=== PATIENT | female | born 1955 | race Caucasian/White ===

== ENCOUNTER 2024-06-22 09:05 | Observation (INO) | payer OTHER ==
[2024-06-21 12:11] LABS: BASOPHILS # (AUTO) 0.03 K/uL (0.00-0.20); BASOPHILS % (AUTO) 0.6 % (0.0-5.0); EOSINOPHILS # (AUTO) 0.03 K/uL (0.00-0.70); EOSINOPHILS % (AUTO) 0.6 % (0.0-8.0); HEMATOCRIT 41.6 % (36-48); IMMATURE GRANULOCYTE ABSOLUTE 0.02 K/uL (0-1); LYMPHOCYTES # (AUTO) 1.7 K/uL (1.0-4.8); LYMPHOCYTES % (AUTO) 35.4 % (21.0-51.0); MEAN CORPUSCULAR HEMOGLOBIN 28.7 pg (27.0-33.0); MEAN CORPUSCULAR HGB CONC 31.7 g/dL (32.0-36.0); MEAN CORPUSCULAR VOLUME 90.4 fL (79-99); MONOCYTES # (AUTO) 0.3 K/uL (0.1-1.0); MONOCYTES % (AUTO) 5.3 % (3.0-13.0); NEUTROPHILS # (AUTO) 2.8 K/uL (1.8-7.7); NEUTROPHILS % (AUTO) 57.7 % (40.0-77.0); PLATELET COUNT (AUTO) 287 K/uL (130-400); RED CELL DISTRIBUTION WIDTH 13.2 % (11.0-15.5); WHITE BLOOD COUNT (AUTO) 4.9 K/uL (4.8-10.8)
[2024-06-21 12:15] VITALS: BP 153/82; PULSE 65; RESP 17; TEMP 98.3
[2024-06-21 12:27] LABS: INR 0.96 (0.85-1.15); PROTHROMBIN TIME 10.4 SEC (9.6-11.6)
[2024-06-21 12:28] LABS: PARTIAL THROMBOPLASTIN TIME 25.6 SEC (26.3-35.5)
[2024-06-21 12:34] LABS: APPEARANCE,URINE CLEAR (CLEAR); BILIRUBIN,URINE NEGATIVE (NEGATIVE); COLOR,URINE LIGHT-YELLOW (YELLOW); GLUCOSE, URINE (UA) NEGATIVE (NEGATIVE); KETONES,URINE NEGATIVE (NEGATIVE); LEUKOCYTE ESTERASE ,URINE 75 Leu/uL (NEGATIVE); NITRATE,URINE NEGATIVE (NEGATIVE); OCCULT BLOOD,URINE SMALL (NEGATIVE); PH,URINE 6.5 (5.0-8.0); PROTEIN,URINE NEGATIVE (NEGATIVE); UROBILINOGEN,URINE 0.2 mg/dL (0.2-1.0)
[2024-06-21 12:37] LABS: ADD UA MICROSCOPIC YES
[2024-06-21 12:49] LABS: CREATININE 0.8 mg/dL (0.5-1.0)
[2024-06-21 12:51] LABS: MUCUS,URINE RARE LPF (None Seen); SQUAMOUS EPITHELIAL CELL,UR RARE /HPF (0-2); TRANSITIONAL EPI CELLS,URINE RARE /HPF (None Seen)
[~2024-06-22] VITALS: Ht 165.1 cm; Wt 96.4 kg
[2024-06-22] VITALS (26 sets, daily range): BP systolic 111–138; BP diastolic 55–78; PULSE 55–75; RESP 14–18; TEMP 97.3–98; O2SAT 18–97
[2024-06-22] MEDS ORDERED: rocuRONium bROMide 10MG/1ML 5ML VL ONE (10:24)
[2024-06-22] MEDS ORDERED: proPOFol 10 MG/ML 20ML VIAL IV ONE ×2 (10:24→13:03)
[2024-06-22] MEDS ORDERED: LIDOCAINE PF 100MG/5ML (2%) SYRINGE 5ML ONE (10:24)
[2024-06-22] MEDS ORDERED: FENTanyl CITRate PF 50 MCG/1 ML 2ML VIAL ONE ×2 (10:25→12:28)
[2024-06-22] MEDS: TRANEXAMIC ACID 1000MG/10ML ONE ×2 (11:35→14:46)
[2024-06-22] MEDS ORDERED: dexaMETHasone SOD PHOSPHATE 10MG/ML 1ML VIAL ONE (11:38)
[2024-06-22] MEDS ORDERED: ondanSETRON 4MG INJ ONE (11:38)
[2024-06-22] MEDS: ceFAZolin SODIUM 2 GM VIAL IVPB SCH (11:40)
[2024-06-22] MEDS: ceFAZolin SODIUM 1 GM VIAL ONE (12:22)
[2024-06-22] MEDS: VANCOMYCIN 1G/250ML KIT 250 ML IV ONE (12:31)
[2024-06-22] MEDS ORDERED: phenylEPHRINE HCL 10 MG/ML 1ML VIAL IV ONE (13:16)
[2024-06-22] MEDS ORDERED: CALCIUM CARB 500MG PO PRN (14:30)
[2024-06-22] MEDS ORDERED: FERROUS FUMARATE 324 MG TABLET PO PRN (14:30)
[2024-06-22] MEDS ORDERED: PoTASSium chloRIDE 20MEQ/100ML 100 ML IV PRN (14:30)
[2024-06-22] MEDS ORDERED: TEMAZepam 15 MG CAPSULE PO PRN (14:30)
[2024-06-22] MEDS ORDERED: PoTASSium chl 10% ELIXIR 20MEQ 20 MEQ/15 ML UDCUP PO PRN (14:30)
[2024-06-22] MEDS ORDERED: PoTASSium chloRIDE 20MEQ ER 20 MEQ ERTAB PO PRN (14:30)
[2024-06-22] MEDS ORDERED: ondanSETRON 4MG INJ IVP PRN (14:30)
[2024-06-22] MEDS: MEPERIDINE-PF 25 MG/ML SYG ONE ×2 (14:47)
[2024-06-22] MEDS: ceFAZolin SODIUM 2 GM VIAL ONE (15:48)
[2024-06-22] MEDS: VANCOMYCIN 500MG+NS 100ML 100 ML IV ONE (15:48)
[2024-06-22] MEDS: LACTATED RINGERS 1000ML 1,000 ML IV ONE (15:48)
[2024-06-22] MEDS: HYDROcodone/APAP 5/325 1 TAB TABLET PO PRN (17:34)
[2024-06-22] MEDS: 0.9%NACL 1000ML 1,000 ML IV SCH (17:35)
[2024-06-22] MEDS: CeleCOXib 200 MG CAP PO SCH (20:30)
[2024-06-22] MEDS: GABApentin 100 MG CAPSULE PO SCH (20:30)
[2024-06-22] MEDS: FAMOTIDINE 20MG TAB PO SCH (20:30)
[2024-06-22] MEDS: ASPIRIN 81 MG EC TAB PO SCH (20:30)
[2024-06-22] MEDS: ceFAZolin SODIUM 1 GM VIAL IVP SCH (20:31)
[2024-06-23] VITALS: BP_SYST 105; BP_SYST 139; BP_DIAS 66; BP_DIAS 68; PULSE 69; PULSE 70; RESP 18; TEMP 98; TEMP 98.4
[2024-06-23 04:00] VITALS: BP 126/66; PULSE 70; RESP 18; TEMP 98.2
[2024-06-23 04:53] LABS: HEMATOCRIT 34.7 % (36-48); MEAN CORPUSCULAR HEMOGLOBIN 29.6 pg (27.0-33.0); MEAN CORPUSCULAR HGB CONC 33.1 g/dL (32.0-36.0); MEAN CORPUSCULAR VOLUME 89.4 fL (79-99); RED BLOOD CELL COUNT(AUTO) 3.88 MIL/uL (4.00-5.50); RED CELL DISTRIBUTION WIDTH 12.8 % (11.0-15.5); WHITE BLOOD COUNT (AUTO) 8.9 K/uL (4.8-10.8)
[2024-06-23 05:07] LABS: CREATININE 0.7 mg/dL (0.5-1.0); POTASSIUM 4.3 mmol/L (3.5-5.1)
[2024-06-23 07:45] VITALS: O2SAT 97
[2024-06-23 08:00] VITALS: BP 123/67; PULSE 65; RESP 19; TEMP 98.1
[2024-06-23] MEDS: DiphenhydrAMINE HCL 50 MG/ML VIAL IVP PRN (08:22)
[2024-06-23] MEDS: polyETHYLene GLYCol 3350 17 GM POWD.PACK PO SCH (08:22)
[2024-06-23] MEDS: levoFLOXacin 500 MG TABLET PO SCH (08:23)
[2024-06-23] MEDS: ketOROlac 15MG/ML VIAL (15MG/ML) IV PRN (08:23)
[2024-06-23 12:00] VITALS: BP 106/65; PULSE 72; RESP 19; TEMP 98.2
[2024-06-23 16:00] VITALS: BP_SYST 110; BP_SYST 136; BP_DIAS 49; BP_DIAS 79; PULSE 68; PULSE 95; RESP 19; TEMP 98.3; TEMP 98.9
[2024-06-23] MEDS ORDERED: LEVO-70 PO (16:24)
[2024-06-23] MEDS ORDERED: AEC81 PO (16:24)
[2024-06-23] MEDS ORDERED: HYDR-4060 PO (16:24)
[2024-06-25] MEDS ORDERED: BisaCODYL 10 MG SUPP.RECT RC PRN (14:30)
== END 2024-06-23 18:55 | disposition home or self-care (01) ==
LOC: DAH 09:05 → DAHIP 09:06 → 4DH 15:30
PROVIDERS: ADMIT Orthopaedic Surgery; ATTEND Orthopaedic Surgery
DX: M17.12 Unilateral primary osteoarthritis, left knee (principal); M21.062 Valgus deformity, not elsewhere classified, left knee; M24.562 Contracture, left knee; G89.18 Other acute postprocedural pain; Z79.899 Other long term (current) drug therapy; Z90.710 Acquired absence of both cervix and uterus; Z90.49 Acquired absence of other specified parts of digestive tract; Z86.2 Personal history of diseases of the blood and blood-forming organs and certain disorders involving the immune mechanism
CPT/HCPCS: 80048 ×2; 85025; 85610; 85730; 87086 ×2; 81001; 36415 ×2; 87641; 64447; 64445; 27447; 96365; 87186; 88311; 88305; 97161; 97116 ×3; 97530 ×5; 96366; 96375; 85027; G0378 ×26; A4663; J7120 ×2; J3010 ×2; J0690 ×4; J3490 ×3; J1100; J2003; J2704 ×2; J2405; J3370 ×2; J2175 ×2; J2371; A9272; A4649 ×3; A4930 ×2; C1713; C1776; A4215; A4223; A4213; A4222; A4221; J1200; J1885